=== PATIENT | male | born 1955 | race African-American/Black ===

== ENCOUNTER 2017-02-08 08:22 | Day surgery (SDC) | payer OTHER ==
[2017-02-08] MEDS ORDERED: ALPHAGAN-P OPHTH 1 DOSE AFFEYE ONE (08:40)
[2017-02-08] MEDS ORDERED: TETRACAINE 0.5% OPHTH 1 DOSE AFFEYE ONE (08:40)
[2017-02-08 11:27] VITALS: BP 148/80
== END 2017-02-08 09:13 | disposition home or self-care (01) ==
LOC: EDBD 08:22 → SURG1 08:22
PROVIDERS: ATTEND Ophthalmology
PROC: 08QC3ZZ Repair Right Iris, Percutaneous Approach (ICD-10-PCS; principal; 2017-02-08 11:45)
DX: H40.1112 Primary open-angle glaucoma, right eye, moderate stage (principal)
CPT/HCPCS: 65855